=== PATIENT | male | born 1990 | race Caucasian/White ===

== ENCOUNTER 2025-01-30 06:23 | Day surgery (SDC) | payer BC, SELFPAY | END 2025-01-30 10:42 | disposition home or self-care (01) | LOC: GI 06:23 | PROVIDERS: ATTENDING PHYSICIAN Internal Medicine Gastroenterology | DX: R12 Heartburn (principal); K22.89 Other specified disease of esophagus; K21.00 Gastro-esophageal reflux disease with esophagitis, without bleeding | CPT/HCPCS: 43239; 88305 ==

== ENCOUNTER 2025-02-26 06:19 | Day surgery (SDC) | payer BC, SELFPAY | END 2025-02-26 13:38 | disposition home or self-care (01) | LOC: GI 06:19 | PROVIDERS: ATTENDING PHYSICIAN Internal Medicine Gastroenterology | DX: K62.5 Hemorrhage of anus and rectum (principal); K62.89 Other specified diseases of anus and rectum; K64.8 Other hemorrhoids; K60.2 Anal fissure, unspecified | CPT/HCPCS: 45330 ==

== ENCOUNTER 2025-09-11 06:07 | Day surgery (SDC) | payer BC, SELFPAY ==
[2025-09-11 06:15] VITALS: BMI 34.2
[2025-09-11 06:16] VITALS: BP 127/88
[2025-09-11] MEDS: TYLENOL 1000 MG PO (06:27)
[2025-09-11] MEDS: CELEBREX 200 MG PO (06:27)
[2025-09-11] MEDS: NORMOSOL-R/PLASMALYTE-A 1000 IV (06:28)
[2025-09-11 08:11] VITALS: BP 135/84
--- NOTE | 2025-09-11 08:11 | W.IMMPOSTOP ---
Addendum entered and electronically signed by Yaya Duran MD 09/11/25 08:21:
updated patient in SDS
Original Note:
Surgical Immed Post Op Note
-
Primary Surgeon: Yaya Duran MD
Assisting Surgeon: None
Pre-op Diagnosis: Anal fissure
Post-op Diagnosis: Anal fissure
Procedure Performed: Botox injection of anal sphincter, bilateral pudendal nerve block
Anesthesia Type: Sedation with local
Specimen / Cultures: None
Estimated Blood Loss: 5 mL
Complications: None
Operative Findings: Hypertonic sphincter tone with small PML anal fissure, about 3 mm x 3 mm
--- NOTE | 2025-09-11 08:13 | OR.RPT ---
Operative Report
Operative Report
DATE OF OPERATION: 09/11/2025
SURGEON: Yaya Duran MD
PREOPERATIVE DIAGNOSIS: Anal fissure
POSTOPERATIVE DIAGNOSIS: Anal fissure
OPERATION: Exam under anesthesia, injection of botox into internal anal sphincter, bilateral pudendal nerve block
ASSISTANTS:
1. None
ANESTHESIA: Sedation with local
ESTIMATED BLOOD LOSS: 5 mL
FINDINGS:
1. Very small anal fissure in the PML, about 3 mm x 3 mm, associated with hypertonic sphincter tone
2. Incidental findings: Small internal hemorrhoids in the right lateral, right posterior, left lateral and left anterior positions without irritation or bleeding
SPECIMENS:
1. None
DRAINS: None
COMPLICATIONS: None
INDICATIONS: The patient is a 35-year-old male who initially presented for anal pain. He underwent flexible sigmoidoscopy by Dr. Abreu and was diagnosed with an anal fissure. He tried nitroglycerin with lidocaine cream, but his fissure did not
improve. Therefore, the patient was recommended to have surgery. The operation was discussed with the patient in detail, including the risks, benefits and alternatives. Risks described included, but not limited to bleeding, infection, urinary
retention, damage to nearby structures such as the anal sphincter, fecal incontinence, recurrence, and anesthetic risks. The patient understood and agreed to proceed. The consent was signed and placed in the chart.
PROCEDURE IN DETAIL: The patient was taken to the operating room. Sequential compression devices were placed bilaterally. The patient was placed on the operating table in prone position. Sedation was commenced without complication. Two seat belts
were secured around the legs and upper back. The buttocks were taped apart. The perineum was shaved, prepped and draped in the usual fashion. A time-out was performed verifying the correct patient, procedure, operative site, positioning, and
special equipment.
Local anesthesia used was a mixture of 30 mL of 0.25% Marcaine with epinephrine, 30mL of 1% lidocaine plain and 0.6 mg of dexamethasone. 40 mL was injected perianally at the beginning of the case. The anorectal exam was performed assessing all four
quadrants of the anal canal using Hill-Mcrae retractors in progressively increasing size. There was a small, 3 x 3 mm, anal fissure in the posterior midline right at the anal verge. The internal sphincter was noted to be hypertonic. There were
small internal hemorrhoids noted in the right lateral right posterior left lateral and left anterior positions. These hemorrhoids were particularly small and not irritated with bleeding. There was no proctitis and there were no masses.
100 units of Botox was drawn up with 2 mL of sterile saline. Using a 27-gauge needle, the Botox was injected in 4 quadrants in equal portions, specifically 25 units in the anterior midline, right lateral quadrant, posterior midline and left lateral
quadrant. Care was taken to avoid incidental injection into the external sphincter. The remaining 20 mL of local were injected. 5 mL was injected bilaterally for a pudendal nerve block. 10 mL was injected around the surgical site and perianally.
Hemostasis was reassessed once more using the small Hill-Mcrae and was confirmed.
At this point, the procedure was complete. All needle, sponge and instrument counts were correct. The patient tolerated the procedure well and was transferred to the recovery room in stable condition with gauze dressing in place secured with silk
tape.
DICTATED BY: Yaya Duran MD
[2025-09-11 08:15] VITALS: BP 136/86
[2025-09-11 08:30] VITALS: BP 118/85
[2025-09-11 08:45] VITALS: BP 122/84
[2025-09-11] MEDS: MOTRIN 600 MG PO (08:52)
[2025-09-11 09:00] VITALS: BP 131/81
[2025-09-11] MEDS: ROXICODONE 5 MG PO (09:09)
== END 2025-09-11 09:15 | disposition home or self-care (01) ==
LOC: SDS 06:07
PROVIDERS: ATTENDING PHYSICIAN Surgery
DX: K60.2 Anal fissure, unspecified (principal); K62.89 Other specified diseases of anus and rectum
CPT/HCPCS: 45990; J0585